=== PATIENT | female | born 1980 | race Caucasian/White ===

== ENCOUNTER → 2017-01-05 | Outpatient (CLI) | payer OTHER ==
[~2017-01-05] MED LIST: ATV5 PO; DIPH-437 PO; IBUP-1050 PO; LRT5 PO; SEASONIQUE PO
[2017-01-05 14:52] LABS: PREG INTERNAL NEGATIVE QC NEG CLEAR BACKGROUND; PREG INTERNAL POSITIVE QC POS CONTROL LINE
== END | disposition home or self-care (01) ==
LOC: C.LAB 14:22
PROVIDERS: ATTEND Physician Assistant
DX: Z30.9 Encounter for contraceptive management, unspecified (principal)

== ENCOUNTER 2019-04-30 15:42 | Inpatient (IN) ==
[2019-04-30] MEDS ORDERED: ACETAMINOPHEN 1,000 MG/100 ML VIAL IV STA (16:38)
[2019-04-30] MEDS ORDERED: ONDANSETRON INJ 2 MG/ML 2 ML VIAL IV STA (16:38)
[2019-04-30] MEDS ORDERED: SODIUM CHLORIDE 0.9% 1000ML 1,000 ML IV ONE (16:38)
[2019-04-30 17:04] LABS: Basophils # (auto) 0.02 K/uL (0-0.2); Basophils % (auto) 0.1 %; Eosinophils # (auto) 0.06 K/uL (0-0.5); Eosinophils % (auto) 0.4 %; Hematocrit (blood only) 36.7 % (37-47); Hemoglobin 12.5 g/dL (12.0-16.0); Immature Granulocytes # (auto) 0.05 K/uL (0.00-0.02); Immature Granulocytes % (auto) 0.4 %; Lymphocytes # (auto) 2.59 K/uL (1.2-3.4); Lymphocytes % (auto) 18.2 %; Mean Corpuscular Hemoglobin 31.3 pg (25-34); Mean Corpuscular Hgb Conc 34.1 g/dL (32-36); Mean Corpuscular Volume 91.8 fL (80-100); Mean Platelet Volume 9.9 fL (7.4-10.4); Monocytes # (auto) 1.02 K/uL (0.11-0.59); Monocytes % (auto) 7.2 %; Neutrophils # (auto) 10.49 K/uL (1.4-6.5); Neutrophils % (auto) 73.7 %; Platelet Count 281 K/uL (130-400); RDW Coefficient of Variation 12.9 % (11.5-14.5); RDW Standard Deviation 43.3 fL (36.4-46.3); White Blood Count 14.23 K/uL (4.8-10.8)
--- NOTE | 2019-04-30 17:14 | CT Scan Report ---
CT head/brain wo con CLINICAL HISTORY: 38 years-old Female with atypical headache. Acute headache TECHNIQUE: Multiple axial CT images of the head were obtained without contrast. A dose lowering tech nique was utilized adhering to the principles of ALARA. CT DOSE: 638.56 mGycm COMPARISON: None. FINDINGS: No acute intracranial hemorrhage, midline shift, intracranial mass, hydrocephalus, territorial ischem ia or abnormal extra-axial collection. The calvarium is intact. Minimal mucosal thickening of the ethmoid air cells. Mastoid air cells are clear. Soft tissues and orbits are unremarkable. IMPRESSION: No acute intracranial abnormality. ACT 112: Negative or not required by law. The above report was generated using voice recognition software. It may contain grammatical, syntax o r spelling errors. Electronically signed by: Joe Yarbrough M.D. 04/30/2019 5:13 PM
[2019-04-30 17:27] LABS: Influenza A virus by PCR Neg for Influ A (Neg); Influenza B virus by PCR Neg for Influ B (Neg)
[2019-04-30 17:28] LABS: Albumin Level 3.4 gm/dl (3.4-5.0); BUN Creatinine Ratio 9.1 (10-20); Calcium 9.4 mg/dl (8.5-10.1); Creatinine Clr Calc Pharmacy 104.3 ml/min; Est GFR (African American) 102.2; Est GFR (Non-African American) 88.2; Potassium 3.3 mmol/L (3.5-5.1)
[2019-04-30] MEDS ORDERED: KETOROLAC TROMETHAMINE 15 MG/ML VIAL IV ONE (17:28)
[2019-04-30 17:31] LABS: Albumin Globulin Ratio 0.7 (0.9-2); Bilirubin,Total 0.5 mg/dl (0.2-1); Globulin 4.8 gm/dl (2.5-4.0); Total Protein 8.2 gm/dl (6.4-8.2)
[2019-04-30 17:33] LABS: Lipase 75 U/L (73-393); Thyroid Stimulating Hormone 0.836 uIu/ml (0.300-4.500); Troponin I < 0.015 ng/ml (0-0.045)
[2019-04-30 17:38] LABS: Pregnancy Test, Serum Negative (Negative)
[2019-04-30 17:48] LABS: Appearance Urine Clear (Clear); Bilirubin Urine Negative (Negative); Blood Urine Negative (Negative); Color Urine Yellow; Glucose Urine UA Negative (Negative); Ketones Urine 2+ (Negative); Leukocyte Esterase Urine Negative (Negative); Nitrite Urine Negative (Negative); Protein Urine Negative (Negative); Urobilinogen Urine Negative (Negative)
[2019-04-30] MEDS ORDERED: LIDOCAINE/EPINEPHRINE 1% 20 ML VIAL INFIL ONE (17:51)
[2019-04-30 18:03] LABS: Lyme Ab IgG w/WB Rflx Negative (Negative); Lyme Ab IgM w/WB Rflx Negative (Negative)
--- NOTE | 2019-04-30 18:22 | XRay Report ---
XR abdomen 2V w PA chest CLINICAL HISTORY: fever, vomiting nausea. Vomiting. COMPARISON STUDY: No previous studies for comparison. FINDINGS: The soft tissues, psoas shadows, renal outlines and intestinal gas pattern appear normal. T here is no evidence for bowel obstruction. There is no evidence for free intraperitoneal air. No abno rmal abdominal calcifications are seen. A frontal view of the chest was performed and is unremarkable . IMPRESSION: Normal study. ACT 112: Negative or not required by law. The above report was generated using voice recognition software. It may contain grammatical, syntax or spelling errors. Electronically signed by: Iván Smith M.D. 04/30/2019 6:20 PM
[2019-04-30] MEDS: SODIUM CHLORIDE 0.9% 1000ML 1,000 ML IV SCH (19:21)
--- NOTE | 2019-04-30 20:24 | Emergency Department Note ---
Entered by Melita Olivares acting as a scribe for Sue Bartholomew DO History of Present Illness General Chief complaint: Headache Stated complaint: severe morcoho, fever, neck stiffness Time Seen by Provider: 04/30/19 16:20 Source: patient History of Present Illness Onset (ago): day(s) (yesterday morning) Location: head Pain Consistency: + other (worsening) Maximum Pain Intensity: 7 Quality: + other (headache) Associated symptoms: + fever/chills, + nausea/vomiting and + other (+dizzy; +neck pain; +ringing to ears; +vision troubles; -sore throat ); no chest pain, no cough, no rash and no shortness of breath The patient is a 38 year old female, with past medical history of anxiety and asthma, who presents to the Emergency Room with complaints of worsening headache that started yesterday morning while the patient was watching a [employer] tournament. The patient reports that she was diagnosed with strep throat last week, and she states that she is being treated for strep with penicillin over the last 5 days. She states her strep throat symptoms started to improve prior to her headache starting. The patient states that she took ibuprofen around noon yesterday, but she states it did not provide relief. The patient states the headache started as all-over throbbing, but she states now it feels as if s omeone is trying to cut off the back of her eyeballs. The patient also states she has been dizzy, nauseous, has had a fever, neck pain, and has experienced ringing to her ears. The patient states she has also had trouble focusing her vision due to being dizzy, and she states she has experienced one episode of vomiting. She denies chest pain, shortness of breath, cough, rash/sores, or diarrhea. The patient also denies having history of frequent headaches or migraines. 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 and A total of 10 systems reviewed and were otherwise negative Physical Exam Vital Signs Vital Signs - 24 hr 04/30/19 15:48 04/30/19 17:20 04/30/19 17:52 Temperature 38.1 C H 37.1 C Temperature Source Oral Oral Pulse Rate 96 H Pulse Rate [Apical] 92 H Pulse Rhythm [Apical] Regular Pulse Strength [Apical] Normal Respiratory Rate 20 18 Respiratory Effort / Characteristics Non-Labored Non-Labored Spontaneous Respiratory Depth Normal Normal Respiratory Pattern Regular Regular Blood Pressure 123/77 Blood Pressure [Left Arm] 129/86 Blood Pressure Mean 92 Blood Pressure Mean [Left Arm] 100 Blood Pressure Position Sitting Blood Pressure Position [Left Arm] Lying Pulse Oximetry 98 96 Oxygen Delivery Method Room Air Room Air Sepsis Recent Fever Within 48 Hours Yes Sepsis Action Taken by Nursing No Action Required 04/30/19 19:20 Temperature Temperature Source Pulse Rate Pulse Rate [Apical] 78 Pulse Rhythm [Apical] Regular Pulse Strength [Apical] Normal Respiratory Rate 18 Respiratory Effort / Characteristics Non-Labored Spontaneous Respiratory Depth Normal Respiratory Pattern Regular Blood Pressure Blood Pressure [Left Arm] 107/64 Blood Pressure Mean Blood Pressure Mean [Left Arm] 78 Blood Pressure Position Blood Pressure Position [Left Arm] Lying Pulse Oximetry 97 Oxygen Delivery Method Room Air Sepsis Recent Fever Within 48 Hours Sepsis Action Taken by Nursing GENERAL: alert, ill-appearing, obese, no distress, non-toxic EYE EXAM: normal conjunctiva, PERRL and EOM's grossly intact OROPHARYNX: no exudate, no erythema, lips, buccal mucosa, and tongue normal and mucous membranes are moist, no mucocutaneous lesions. NECK: Mild tenderness to palpation to right perispinal muscles. Supple, no nuchal rigidity, no adenopathy. No stridor. LUNGS: Clear to auscultation. Normal chest wall mechanics HEART: no murmurs, S1 normal and S2 normal ABDOMEN: abdomen soft, non-tender, normo-active bowel sounds, no masses, no rebound or guarding. BACK: Back is symmetrical on inspection and there is no deformity, no midline tenderness, no CVA tenderness. SKIN: no petechiae, rashes, and no bruising UPPER EXTREMITIES: upper extremities are grossly normal. FROM, nml pulses b/l. LOWER EXTREMITIES: No pitting edema. FROM, nml pulses b/l. NEURO EXAM: Normal sensorium, cranial nerves II-XII grossly intact, normal spe ech, no gross weakness of arms, no gross weakness of legs. Procedures Lumbar Puncture Time Out Performed: Yes (1821) Patient Position: other (initially upright, then left lateral decubitus ) Skin Prep: Povidone-Iodine 1% Local Anesthetic: lidocaine 1% and with epi Amount of anesthesia used (mL): 15 Spinal Needle Gauge: 22G Interspace Used: L4-L5 Fluid Initially Obtained: other (unable to obtain) Complications: unable to obtain CSF Course Course 1630: Past medical records reviewed. The patient was evaluated in room A2. A complete history and physical exam was performed. 1746: I updated the patient on her lab results. I discussed the option of lumbar puncture. The patient is in agreement with the plan for a lumbar puncture to rule out meningitis. 1821: I attempted a lumbar puncture on the patient. Patient initially seated upright, area cleaned and prepped in usual fashion, and significant time spent providing local anesthesia with lidocaine. While beginning the procedure, patient began to complain of symptoms suggestive of vasovagal reaction. And then became distraught stating that she did not lay down she was going to pass out or vomit. Patient was then laid in the left lateral recumbent position and allowed to rest for 5 to 10 minutes. I then discussed with her option of reattempting the lumbar puncture in the left lateral, position which she was agreeable, however stated that this could only be performed once. After an unsu ccessful first attempt in the left lateral recumbent position, discussed with patient sending her to radiology for an LP, she was in agreement with this plan. 1999: Patient taken to radiology for LP. 2044: Patient is just returned to the department from radiology. Patient signed out to Dr. liriano as CSF is still pending. While I have a lower suspicion for bacterial meningitis, patient did have findings that warranted additional investigation and results of LP are still pending. Administered Medications Heparin Sodium (Porcine) (Heparin Sodium (Porcine)) 5,000 units SQ Q8 RADHA Stop: 05/31/19 05:59 Last Admin: 05/01/19 15:20 Dose: Not Given Documented by: [id number] Admin: 05/01/19 05:31 Dose: Not Given Documented by: [id number] Sodium Chloride (Nss 1000ml) 1,000 mls @ 80 mls/hr IV .[id number] RADHA Stop: 05/31/19 00:11 Last Admin: 05/01/19 15:20 Dose: 80 mls/hr Documented by: [id number] Infusion: 05/01/19 14:29 Dose: 80 mls/hr Documented by: [id number] Admin: 05/01/19 01:59 Dose: 80 mls/hr Documented by: [id number] Ceftriaxone Sodium 2,000 mg/ (Dextrose) 70 mls @ 100 mls/hr IV Q12H RADHA; Protocol Stop: 05/11/19 09:59 Last Infusion: 05/01/19 11:35 Dose: 0 mls/hr Documented by: [id number] Admin: 05/01/19 10:02 Dose: 100 mls/hr Documented by: [id number] Vancomycin HCl 1,250 mg/ (Sodium Chloride) 275 mls @ 125 mls/hr IV Q10H RADHA; Protocol Stop: 05/11/19 05:59 Last Infusion: 05/01/19 19:25 Dose: 0 mls/hr Documented by: [id number] Admin: 05/01/19 16:39 Dose: 125 mls/hr Documented by: [id number] Infusion: 05/01/19 07:48 Dose: 0 mls/hr Documented by: [id number] Admin: 05/01/19 05:30 Dose: 125 mls/hr Documented by: [id number] Ketorolac Tromethamine (Toradol) 15 mg IV Q6H PRN PRN Reason: Pain Stop: 05/06/19 00:11 Last Admin: 05/01/19 16:52 Dose: 15 mg Documented by: [id number] Admin: 05/01/19 07:42 Dose: 15 mg Documented by: [id number] Discontinued Medications Acetaminophen/Butalbital/Caffeine (Fioricet) 1 tab PO NOW STA Stop: 04/30/19 20:46 Last Admin: 04/30/19 20:54 Dose: 1 tab Documented by: [id number] Dexamethasone (Decadron) 10 mg IV NOW STA Stop: 04/30/19 20:46 Last Admin: 04/30/19 20:54 Dose: 10 mg Documented by: [id number] Sodium Chloride (Nss 1000ml) 1,000 mls @ 999 mls/hr IV .Q1H1M ONE Stop: 04/30/19 17:38 Last Infusion: 04/30/19 18:00 Dose: 0 mls/hr Documented by: [id number] Admin: 04/30/19 16:59 Dose: 999 mls/hr Documented by: [id number] Acetaminophen (Ofirmev) 1,000 mg in 100 mls @ 400 mls/hr IV NOW STA Stop: 04/30/19 16:52 Last Infusion: 04/30/19 17:15 Dose: 0 mls/hr Documented by: [id number] Admin: 04/30/19 17:00 Dose: 400 mls/hr Documented by: [id number] Sodium Chloride (Nss 1000ml) 1,000 mls @ 250 mls/hr IV .Q4H RADHA Stop: 05/30/19 19:14 Last Admin: 05/01/19 04:14 Dose: Not Given Documented by: [id number] Infusion: 04/30/19 22:46 Dose: 0 mls/hr Documented by: [id number] Admin: 04/30/19 19:21 Dose: 250 mls/hr Documented by: [id number] Magnesium Sulfate/Dextrose (Magnesium Sulfate / D5w) 1 gm in 100 mls @ 100 mls/hr IV ONE ONE Stop: 04/30/19 21:44 Last Infusion: 04/30/19 21:54 Dose: 0 mls/hr Documented by: [id number] Admin: 04/30/19 20:54 Dose: 100 mls/hr Documented by: [id number] Ceftriaxone Sodium (Rocephin) 2,000 mg in 70 mls @ 140 mls/hr IV NOW STA Stop: 04/30/19 21:59 Last Infusion: 04/30/19 22:40 Dose: 0 mls/hr Documented by: [id number] Admin: 04/30/19 22:10 Dose: 140 mls/hr Documented by: [id number] Vancomycin HCl 2,000 mg/ (Sodium Chloride) 540 mls @ 200 mls/hr IV NOW ONE Stop: 05/01/19 00:11 Last Infusion: 05/01/19 01:59 Dose: 0 mls/hr Documented by: [id number] Admin: 04/30/19 22:47 Dose: 200 mls/hr Documented by: [id number] Ketorolac Tromethamine (Toradol) 10 mg IV NOW ONE Stop: 04/30/19 17:29 Last Admin: 04/30/19 17:52 Dose: 10 mg Documented by: [id number] Ketorolac Tromethamine (Toradol) Confirm Administered Dose 15 mg .ROUTE .STK-MED ONE Stop: 05/01/19 01:12 Last Admin: 05/01/19 01:14 Dose: 15 mg Documented by: [id number] Lidocaine/Epinephrine (Xylocaine/Epinephrine 1%) 20 ml INFIL NOW ONE Stop: 04/30/19 17:52 Last Admin: 04/30/19 19:03 Dose: Not Given Documented by: [id number] Ondansetron HCl (Zofran) 4 mg IV NOW STA Stop: 04/30/19 16:39 Last Admin: 04/30/19 17:00 Dose: 4 mg Documented by: [id number] Potassium Chloride (Klor-Con M20) 20 meq PO NOW STA Stop: 05/01/19 00:13 Last Admin: 05/01/19 01:13 Dose: 20 meq Documented by: [id number] Medical Decision Making Differential Diagnosis Differential diagnosis: Etiologies such as migraine headache, meningitis, sinusitis, CO exposure, ICH, SAH, infection, tumor, headache, sinus thrombosis, arterial dissection, as well as others were entertained. Medical Records Attestation: I reviewed the patient's medical records. Home Medications Current Medication List: was personally reviewed by me Laboratory Data Attestation: I reviewed the patient's lab results. Result diagrams: 05/01/19 05:20 05/01/19 05:20 Lab Results 04/30/19 04/30/19 04/30/19 Range/Units 16:41 16:57 16:57 WBC 14.23 H (4.8-10.8) K/uL RBC 4.00 L (4.2-5.4) M/uL Hgb 12.5 (12.0-16.0) g/dL Hct 36.7 L (37-47) % MCV 91.8 (80-100) fL MCH 31.3 (25-34) pg MCHC 34.1 (32-36) g/dL RDW Std Deviation 43.3 (36.4-46.3) fL RDW Coeff of Tanner 12.9 (11.5-14.5) % Plt Count 281 (130-400) K/uL MPV 9.9 (7.4-10.4) fL Immature Gran % (Auto) 0.4 % Neut % (Auto) 73.7 % Lymph % (Auto) 18.2 % Carbon % (Auto) 7.2 % Eos % (Auto) 0.4 % Baso % (Auto) 0.1 % Immature Gran # (Auto) 0.05 H (0.00-0.02) K/uL Neut # (Auto) 10.49 H (1.4-6.5) K/uL Lymph # (Auto) 2.59 (1.2-3.4) K/uL Carbon # (Auto) 1.02 H (0.11-0.59) K/uL Eos # (Auto) 0.06 (0-0.5) K/uL Baso # (Auto) 0.02 (0-0.2) K/uL Sodium (136-145) mmol/L Potassium (3.5-5.1) mmol/L Chloride (98-107) mmol/L Carbon Dioxide (21-32) mmol/L Anion Gap (3-11) BUN (7-18) mg/dl Creatinine (0.6-1.2) mg/dl Est Cr Clr Drug Dosing ml/min Est GFR ( Amer) Est GFR (Non-Af Amer) BUN/Creatinine Ratio (10-20) Glucose (70-99) mg/dl Calcium (8.5-10.1) mg/dl Magnesium 2.0 (1.8-2.4) mg/dl Total Bilirubin (0.2-1) mg/dl AST (15-37) U/L ALT (12-78) U/L Alkaline Phosphatase (45-117) U/L Troponin I < 0.015 (0-0.045) ng/ml Total Protein (6.4-8.2) gm/dl Albumin (3.4-5.0) gm/dl Globulin (2.5-4.0) gm/dl Albumin/Globulin Ratio (0.9-2) Lipase 75 (73-393) U/L TSH 0.836 (0.300-4.500) uIu/ml HCG, Qual (Negative) Urine Color Urine Appearance (Clear) Urine pH (4.5-7.5) Ur Specific Ferdinand (1.000-1.030) Urine Protein (Negative) Urine Glucose (UA) (Negative) Urine Ketones (Negative) Urine Blood (Negative) Urine Nitrite (Negative) Urine Bilirubin (Negative) Urine Urobilinogen (Negative) Ur Leukocyte Esterase (Negative) CSF Appearance CSF Color Xanthrochromic CSF WBC (0-5) /uL CSF RBC (0-) /uL CSF Cell Count Tube # CSF Mononuclear WBCs % CSF Polynuclear WBCs % CSF Chemistry Tube # CSF Glucose (40-70) mg/dl CSF Total Protein (15-45) mg/dl CSF C.neoform/gat PCR (NotDetected) CSF CMV DNA (PCR) (NotDetected) CSF Enterovirus (PCR) (NotDetected) CSF E. coli K1 (PCR) (NotDetected) CSF H. influenzae (PCR) (NotDetected) CSF HSV I (PCR) (NotDetected) CSF HSV II (PCR) (NotDetected) CSF HHV 6 (PCR) (NotDetected) CSF L.monocytogenes PCR (NotDetected) CSF N. meningitidis PCR (NotDetected) CSF Parechovirus (PCR) (NotDetected) CSF S. agalactiae (PCR) (NotDetected) CSF S. pneumoniae (PCR) (NotDetected) CSF VZV DNA (PCR) (NotDetected) Lyme Disease IgG Ab (Negative) Lyme Disease IgM Ab (Negative) Influenza Type A (PCR) Neg for Influ A (Neg) Influenza Type B (PCR) Neg for Influ B (Neg) 01/27/20 01/27/20 01/27/20 Range/Units 16:57 16:57 17:15 WBC (4.8-10.8) K/uL RBC (4.2-5.4) M/uL Hgb (12.0-16.0) g/dL Hct (37-47) % MCV (80-100) fL MCH (25-34) pg MCHC (32-36) g/dL RDW Std Deviation (36.4-46.3) fL RDW Coeff of Tanner (11.5-14.5) % Plt Count (130-400) K/uL MPV (7.4-10.4) fL Immature Gran % (Auto) % Neut % (Auto) % Lymph % (Auto) % Carbon % (Auto) % Eos % (Auto) % Baso % (Auto) % Immature Gran # (Auto) (0.00-0.02) K/uL Neut # (Auto) (1.4-6.5) K/uL Lymph # (Auto) (1.2-3.4) K/uL Carbon # (Auto) (0.11-0.59) K/uL Eos # (Auto) (0-0.5) K/uL Baso # (Auto) (0-0.2) K/uL Sodium 136 (136-145) mmol/L Potassium 3.3 L (3.5-5.1) mmol/L Chloride 102 (98-107) mmol/L Carbon Dioxide 28 (21-32) mmol/L Anion Gap 6.0 (3-11) BUN 8 (7-18) mg/dl Creatinine 0.83 (0.6-1.2) mg/dl Est Cr Clr Drug Dosing 104.3 ml/min Est GFR ( Amer) 102.2 Est GFR (Non-Af Amer) 88.2 BUN/Creatinine Ratio 9.1 L (10-20) Glucose 100 H (70-99) mg/dl Calcium 9.4 (8.5-10.1) mg/dl Magnesium (1.8-2.4) mg/dl Total Bilirubin 0.5 (0.2-1) mg/dl AST 7 L (15-37) U/L ALT 17 (12-78) U/L Alkaline Phosphatase 63 (45-117) U/L Troponin I (0-0.045) ng/ml Total Protein 8.2 (6.4-8.2) gm/dl Albumin 3.4 (3.4-5.0) gm/dl Globulin 4.8 H (2.5-4.0) gm/dl Albumin/Globulin Ratio 0.7 L (0.9-2) Lipase (73-393) U/L TSH (0.300-4.500) uIu/ml HCG, Qual Negative (Negative) Urine Color Yellow Urine Appearance Clear (Clear) Urine pH 6.0 (4.5-7.5) Ur Specific Ferdinand 1.020 (1.000-1.030) Urine Protein Negative (Negative) Urine Glucose (UA) Negative (Negative) Urine Ketones 2+ H (Negative) Urine Blood Negative (Negative) Urine Nitrite Negative (Negative) Urine Bilirubin Negative (Negative) Urine Urobilinogen Negative (Negative) Ur Leukocyte Esterase Negative (Negative) CSF Appearance CSF Color Xanthrochromic CSF WBC (0-5) /uL CSF RBC (0-) /uL CSF Cell Count Tube # CSF Mononuclear WBCs % CSF Polynuclear WBCs % CSF Chemistry Tube # CSF Glucose (40-70) mg/dl CSF Total Protein (15-45) mg/dl CSF C.neoform/gat PCR (NotDetected) CSF CMV DNA (PCR) (NotDetected) CSF Enterovirus (PCR) (NotDetected) CSF E. coli K1 (PCR) (NotDetected) CSF H. influenzae (PCR) (NotDetected) CSF HSV I (PCR) (NotDetected) CSF HSV II (PCR) (NotDetected) CSF HHV 6 (PCR) (NotDetected) CSF L.monocytogenes PCR (NotDetected) CSF N. meningitidis PCR (NotDetected) CSF Parechovirus (PCR) (NotDetected) CSF S. agalactiae (PCR) (NotDetected) CSF S. pneumoniae (PCR) (NotDetected) CSF VZV DNA (PCR) (NotDetected) Lyme Disease IgG Ab Negative (Negative) Lyme Disease IgM Ab Negative (Negative) Influenza Type A (PCR) (Neg) Influenza Type B (PCR) (Neg) 04/30/19 04/30/19 04/30/19 Range/Units 20:27 20:27 20:27 WBC (4.8-10.8) K/uL RBC (4.2-5.4) M/uL Hgb (12.0-16.0) g/dL Hct (37-47) % MCV (80-100) fL MCH (25-34) pg MCHC (32-36) g/dL RDW Std Deviation (36.4-46.3) fL RDW Coeff of Tanner (11.5-14.5) % Plt Count (130-400) K/uL MPV (7.4-10.4) fL Immature Gran % (Auto) % Neut % (Auto) % Lymph % (Auto) % Carbon % (Auto) % Eos % (Auto) % Baso % (Auto) % Immature Gran # (Auto) (0.00-0.02) K/uL Neut # (Auto) (1.4-6.5) K/uL Lymph # (Auto) (1.2-3.4) K/uL Carbon # (Auto) (0.11-0.59) K/uL Eos # (Auto) (0-0.5) K/uL Baso # (Auto) (0-0.2) K/uL Sodium (136-145) mmol/L Potassium (3.5-5.1) mmol/L Chloride (98-107) mmol/L Carbon Dioxide (21-32) mmol/L Anion Gap (3-11) BUN (7-18) mg/dl Creatinine (0.6-1.2) mg/dl Est Cr Clr Drug Dosing ml/min Est GFR ( Amer) Est GFR (Non-Af Amer) BUN/Creatinine Ratio (10-20) Glucose (70-99) mg/dl Calcium (8.5-10.1) mg/dl Magnesium (1.8-2.4) mg/dl Total Bilirubin (0.2-1) mg/dl AST (15-37) U/L ALT (12-78) U/L Alkaline Phosphatase (45-117) U/L Troponin I (0-0.045) ng/ml Total Protein (6.4-8.2) gm/dl Albumin (3.4-5.0) gm/dl Globulin (2.5-4.0) gm/dl Albumin/Globulin Ratio (0.9-2) Lipase (73-393) U/L TSH (0.300-4.500) uIu/ml HCG, Qual (Negative) Urine Color Urine Appearance (Clear) Urine pH (4.5-7.5) Ur Specific Ferdinand (1.000-1.030) Urine Protein (Negative) Urine Glucose (UA) (Negative) Urine Ketones (Negative) Urine Blood (Negative) Urine Nitrite (Negative) Urine Bilirubin (Negative) Urine Urobilinogen (Negative) Ur Leukocyte Esterase (Negative) CSF Appearance Cloudy CSF Color Colorless Xanthrochromic No xanthochromia CSF WBC 460 H* (0-5) /uL CSF RBC 10 (0-) /uL CSF Cell Count Tube # 3 CSF Mononuclear WBCs 58.0 % CSF Polynuclear WBCs 42.0 % CSF Chemistry Tube # 4 CSF Glucose 63 (40-70) mg/dl CSF Total Protein 50.5 H (15-45) mg/dl CSF C.neoform/gat PCR Not Detected (NotDetected) CSF CMV DNA (PCR) Not Detected (NotDetected) CSF Enterovirus (PCR) Not Detected (NotDetected) CSF E. coli K1 (PCR) Not Detected (NotDetected) CSF H. influenzae (PCR) Not Detected (NotDetected) CSF HSV I (PCR) Not Detected (NotDetected) CSF HSV II (PCR) Not Detected (NotDetected) CSF HHV 6 (PCR) Not Detected (NotDetected) CSF L.monocytogenes PCR Not Detected (NotDetected) CSF N. meningitidis PCR Not Detected (NotDetected) CSF Parechovirus (PCR) Not Detected (NotDetected) CSF S. agalactiae (PCR) Not Detected (NotDetected) CSF S. pneumoniae (PCR) Not Detected (NotDetected) CSF VZV DNA (PCR) Not Detected (NotDetected) Lyme Disease IgG Ab (Negative) Lyme Disease IgM Ab (Negative) Influenza Type A (PCR) (Neg) Influenza Type B (PCR) (Neg) Imaging Data Radiologist's Impression: Radiology results as stated below per my review and the radiologist's interpretation: XR abdomen 2V w PA chest CLINICAL HISTORY: fever, vomiting nausea. Vomiting. COMPARISON STUDY: No previous studies for comparison. FINDINGS: The soft tissues, psoas shadows, renal outlines and intestinal gas pattern appear normal. There is no evidence for bowel obstruction. There is no evidence for free intraperitoneal air. No abnormal abdominal calcifications are seen. A frontal view of the chest was performed and is unremarkable. IMPRESSION: Normal study. ACT 112: Negative or not required by law. The above report was generated using voice recognition software. It may contain grammatical, syntax or spelling errors. Electronically signed by: Iván Smith M.D. 04/30/2019 6:[address] head/brain wo con CLINICAL HISTORY: 38 years-old Female with atypical headache. Acute headache TECHNIQUE: Multiple axial CT images of the head were obtained without contrast. A dose lowering technique was utilized adhering to the principles of ALARA. CT DOSE: 638.56 mGycm COMPARISON: None. FINDINGS: No acute intracranial hemorrhage, midline shift, intracranial mass, hy drocephalus, territorial ischemia or abnormal extra-axial collection. The calvarium is intact. Minimal mucosal thickening of the ethmoid air cells. Mastoid air cells are clear. Soft tissues and orbits are unremarkable. IMPRESSION: No acute intracranial abnormality. ACT 112: Negative or not required by law. The above report was generated using voice recognition software. It may contain grammatical, syntax or spelling errors. Electronically signed by: Joe Yarbrough M.D. 04/30/2019 5:13 PM ECG Data Attestation: I personally reviewed and interpreted this ECG as follows: Indication: + vomiting Rate (beats per minute): 90 Rhythm: + normal sinus ECG [place]: + Normal ECG ST segments: no ST depression and no ST elevation ECG Findings: + Other (Low voltage ); no PACs and no PVCs Blood Pressure Blood Pressure Findings: Normal blood pressure MDM Narrative Patient presenting with complaints of headache, light sensitivity, neck stiffness and nausea. Patient not immunocompromise, no history of recurrent headaches. Patient hemodynamically stable. Patient did have a mild leukocytosis. Other labs reassuring. Patient signed out to Dr. Liriano awaiting results of CSF. LP originally attempted in the emergency department however was unsuccessful, and patient need to be sent to radiology. Patient was given several doses of medication here and did report slight improvement. Patient was given IV fluids. I do not suspect NPH, occult ICH, SAH, or dissection. I did discuss with patient possible disposition pending the outcomes of her CSF studies. Patient verbalized understanding. Patient had a normal and nonfocal neuro exam at bedside. No evidence of bacteremia/sepsis. Impression & Plan Headache, Strep pharyngitis, Fever Discharge Plan Visit Data *Final* Discharge Date/Time: 04/30/19 23:49 Chief Complaint: Headache Stated Complaint: severe morocho, fever, neck stiffness ED Provider: Kirk Liriano Discharge Problem: Headache, Strep pharyngitis, Fever Patient Disposition: Admitted As Inpatient Condition: Good Discharge Instructions Interventions: ED Discharge Assessment Last Done: 04/30/19 23:49 Discharge Problem: Headache Qualifiers: Headache type: unspecified Headache chronicity pattern: acute headache Intractability: not intractable Qualified Code(s): R51 - Headache Fever Qualifiers: Fever type: unspecified Qualified Code(s): R50.9 - Fever, unspecified The scribe's documentation has been prepared under my direction and personally reviewed by me in its entirety. I confirm that the note above accurately reflects all work, treatment, procedures, and medical decision making performed by me.
[2019-04-30] MEDS ORDERED: BUTALBITAL/ACETAMIN/CAFFEINE TAB PO STA (20:45)
[2019-04-30] MEDS ORDERED: DEXAMETHASONE SOD INJ 4 MG/ML VIAL IV STA (20:45)
[2019-04-30] MEDS ORDERED: MAGNESIUM SULFATE / D5W 1 GM/100 ML BAG IV ONE (20:45)
--- NOTE | 2019-04-30 20:51 | Fluoroscopy Report ---
FL lumbar puncture diagnostic CLINICAL HISTORY: rule out meningitis meningitis FLUOROSCOPY TIME: 6 seconds PROCEDURE: The procedure, risks and benefits were discussed with the patient including the risk of s jami headache, bleeding and infection. The patient agreed to the procedure and informed written cons ent was obtained. The procedure was performed by Dr. Smith following a timeout. The left L2-L3 inter laminar space was targeted. Skin overlying the space was prepped and draped in the usual sterile fash ion and local anesthesia was achieved with 1% lidocaine. Under intermittent fluoroscopic guidance, a 20-gauge x 3 1/2 in. Sprotte needle was inserted into the thecal sac. A total of 10 cc of clear, colo rless cerebral spinal fluid was obtained and spread amongst 4 vials. The patient tolerated the proced ure well. There were no immediate complications. The specimens were sent to the laboratory at the [facility] of the referring physician. IMPRESSION: Successful fluoroscopic guided lumbar puncture with removal of 10 cc of clear, colorless cerebral spinal fluid. No immediate complications. ACT 112: Negative or not required by law. The above report was generated using voice recognition software. It may contain grammatical, syntax or spelling errors. Electronically signed by: Iván Smith M.D. 04/30/2019 8:49 PM
[2019-04-30 20:53] LABS: Total Protein CSF 50.5 mg/dl (15-45)
[2019-04-30 21:09] LABS: Appearance CSF Cloudy; CSF Count Tube # 3; CSF Xanthrochromic No xanthochromia; Color CSF Colorless
[2019-04-30 21:10] LABS: Red Blood Cell CSF (A) 10 /uL (0-); Red Blood Cell CSF (B) 0 /uL (0-); White Blood Cell CSF (B) 430 /uL (0-5)
[2019-04-30 21:17] LABS: White Blood Cell CSF (A) 460 /uL (0-5)
[2019-04-30] MEDS ORDERED: cefTRIAXone SODIUM 2,000 MG/70 ML BAG IV STA (21:30)
[2019-04-30] MEDS ORDERED: VANCOMYCIN HCL 2,000 MG in SODIUM CHLORIDE 0.9% 500 ML IV ONE (21:30)
[2019-04-30] MEDS ORDERED: VANCOMYCIN CONSULT ACTIVE PRN (21:30)
[2019-04-30 22:22] LABS: Cytomegalovirus PCR Not Detected (NotDetected); Enterovirus PCR Not Detected (NotDetected); Escherichia coli K1 PCR Not Detected (NotDetected); Haemophilius influenzae PCR Not Detected (NotDetected); Herpes Simplex Virus 1 PCR Not Detected (NotDetected); Herpes Simplex Virus 2 PCR Not Detected (NotDetected); Listeria monocytogenes PCR Not Detected (NotDetected); Neisseria meningitidis PCR Not Detected (NotDetected); Streptococcus agalactiae PCR Not Detected (NotDetected); Streptococcus pneumoniae PCR Not Detected (NotDetected)
[2019-04-30 22:23] LABS: Cryptococcus neoformans/ga PCR Not Detected (NotDetected); Human Herpes Virus 6 PCR Not Detected (NotDetected); Human Parechovirus PCR Not Detected (NotDetected); Varicella Zoster Virus PCR Not Detected (NotDetected)
[2019-05-01] MEDS ORDERED: VANCOMYCIN CONSULT ACTIVE PRN (00:12)
[2019-05-01] MEDS ORDERED: POLYETHYLENE (MIRALAX) 17 GM PACK PO PRN (00:12)
[2019-05-01] MEDS ORDERED: POTASSIUM CHLORIDE 20 MEQ TABCR PO STA (00:12)
[2019-05-01] MEDS ORDERED: OXYCODONE HCL IR 5 MG TAB (IMMEDIATE RELEASE) PO PRN (00:12)
[2019-05-01] MEDS ORDERED: ACETAMINOPHEN 325 MG TAB PO PRN (00:12)
[2019-05-01] MEDS ORDERED: ONDANSETRON INJ 2 MG/ML 2 ML VIAL IV PRN (00:12)
--- NOTE | 2019-05-01 01:04 | Emergency Department Note ---
ED Visit Note The patient was taken in signout from Dr. Bartholomew at the change of shift. Please see that note for details. In short, the patient is a 38-year-old woman presenting with fever and headache over the past [address] head was negative. WBC 14.2. Chemistry without acidosis. The patient was pending CSF results from LP performed by radiology. CSF subsequently with WBCs 460, mononuclear cells 58% with polynuclear cells 42%. Glucose 63. Protein 50.5. While the patient's CSF result certainly could be attributed to viral meningitis given the significant significant elevation in WBCs reasonable to admit the patient for IV antibiotics while culture and Gram stain are pending. Patient re- evaluated and feeling improved in terms of headache. Patient was agreeable with admission. [facility] the patient for [facility]. . : Headache Qualifiers: Headache type: unspecified Headache chronicity pattern: acute headache Intractability: not intractable Qualified Code(s): R51 - Headache Fever Qualifiers: Fever type: unspecified Qualified Code(s): R50.9 - Fever, unspecified
[2019-05-01] MEDS ORDERED: KETOROLAC TROMETHAMINE 15 MG/ML VIAL ONE (01:11)
[2019-05-01] MEDS: SODIUM CHLORIDE 0.9% 1000ML 1,000 ML IV SCH ×3 (01:59→15:20)
--- NOTE | 2019-05-01 02:29 | History and Physical Report ---
DATE OF ADMISSION: 04/30/2019 CHIEF COMPLAINT: Headache and fever, neck stiffness. HISTORY OF PRESENT ILLNESS: This is a 38-year-old female with past medical history significant for mild asthma, obesity, presents due to severe headache and fevers. The patient was diagnosed with strep throat last and she was on penicillin and the strep throat has improved, but since yesterday morning, she has severe headaches, worst headache in her life, about 9/10 in severity. It is all over the head, but mostly behind the eyes and since last night, she could not eat anything and she had 1 episode of vomiting and she was nauseous and today, she developed fever and also neck stiffness, went to PCP's office and advised to come to the ER. In the ER, labs showed white count of 14.2. Her lumbar puncture was done and it showed white count of 460 and protein of 50.5. CT of the head was unremarkable. The patient is on pain medication and her pain is currently improved, but she still has some photophobia, no phonophobia. Denies any cough. No dysphagia, no odynophagia. No chest pain, no shortness of breath. No abdominal pain. Normal bowel and bladder movements. No hematuria or blood in the stools or black stools. No burning micturition. Was feeling dizzy earlier. No blurred visions. No earache, no runny nose. Currently resting comfortable and hemodynamically stable. ALLERGIES: No known drug allergies. PAST MEDICAL HISTORY: As mentioned above. PAST SURGICAL HISTORY: Dental surgery, cholecystectomy. MEDICATIONS: Currently on penicillin 500 mg p.o. b.i.d. FAMILY HISTORY: Significant for father had diabetes, hyperlipidemia, exposed to [place], hypertension, posttraumatic stress disorder. Mother has sleep apnea, hypertension, ulcerative colitis, hyperlipidemia. Paternal uncle has lung cancer. SOCIAL HISTORY: . Quit smoking in 2003, smoked 1.5 pack a day for 11 years. Alcohol occasional. No drug use. REVIEW OF SYMPTOMS: As per HPI. Rest of review of symptoms negative. PHYSICAL EXAMINATION: GENERAL: The patient is obese, not in acute distress. VITAL SIGNS: T-max 38.1, pulse 74, respiratory rate 18, blood pressure 120/70, oxygen 94% room air. HEENT: No pallor, no icterus. Pupils equal, round, reactive to light. NECK: No JVD, no neck masses, no carotid bruits. CARDIOVASCULAR: S1, S2 heard. Regular rate and rhythm. No murmur, no gallop. RESPIRATORY SYSTEM: Normal AP diameter. No accessory muscle use. No wheezing, no crackles. ABDOMEN: Soft, bowel sounds present, nontender. No distention. CENTRAL NERVOUS SYSTEM: Cranial nerves II through XII grossly intact. Nonfocal. EXTREMITIES: No edema, no erythema. LABORATORY DATA: WBC 14.2, hemoglobin 12.5, hematocrit 36.7, platelets of 281. Sodium 136, potassium 3.3, chloride 102, bicarb 28, BUN 8, creatinine 0.8, serum glucose 100, calcium 9.4, magnesium 2. Total bilirubin 0.5, AST 7, ALT 17, alkaline phosphatase 63. Troponin I less than 0.015. Lipase 75. TSH 0.8. HCG negative. Urinalysis, +2 ketones. Lumbar puncture, CSF analysis: CSF WBC 460, total protein 50.5, glucose 63. ASSESSMENT AND PLAN: This is a 38-year-old female who presents with severe headache, who was diagnosed with strep throat last and on penicillin the strep throat improved, but now presents with severe headaches started yesterday and neck stiffness and fever started today. Lumbar puncture was consistent with meningitis. 1. Headache and fever, meningitis, viral versus bacterial: Recently had a strep throat. Received Rocephin and IV vancomycin in the ER, which we will continue and follow the cultures. Pain control with oxycodone p.r.n. and Toradol iv l p.r.n. IV fluids, normal saline at a rate of 80 mL per hour and monitor in the medical floor. Consult ID in a.m. for further recommendation for type and duration of antibiotics. 2. History of asthma, uses only albuterol as needed. 3. Obesity, needs counseling. 4. Deep vein thrombosis prophylaxis. SCDs and heparin subQ. DISPOSITION: Admit to medical floor. Expect discharge home and follow with family doctor. Level 1 full code. MTDD
[2019-05-01] MEDS: VANCOMYCIN HCL 1,250 MG in SODIUM CHLORIDE 0.9% 250 ML IV SCH ×2 (05:30→16:39)
[2019-05-01 05:31] LABS: Basophils # (auto) 0.01 K/uL (0-0.2); Basophils % (auto) 0.1 %; Eosinophils # (auto) 0.01 K/uL (0-0.5); Eosinophils % (auto) 0.1 %; Hemoglobin 12.4 g/dL (12.0-16.0); Immature Granulocytes # (auto) 0.07 K/uL (0.00-0.02); Immature Granulocytes % (auto) 0.6 %; Lymphocytes # (auto) 1.09 K/uL (1.2-3.4); Lymphocytes % (auto) 9.5 %; Mean Corpuscular Hemoglobin 31.4 pg (25-34); Mean Corpuscular Hgb Conc 33.5 g/dL (32-36); Mean Corpuscular Volume 93.7 fL (80-100); Mean Platelet Volume 9.9 fL (7.4-10.4); Monocytes # (auto) 0.21 K/uL (0.11-0.59); Monocytes % (auto) 1.8 %; Neutrophils # (auto) 10.12 K/uL (1.4-6.5); Neutrophils % (auto) 87.9 %; Platelet Count 264 K/uL (130-400); RDW Coefficient of Variation 12.8 % (11.5-14.5); RDW Standard Deviation 44.4 fL (36.4-46.3); Red Blood Count 3.95 M/uL (4.2-5.4); White Blood Count 11.51 K/uL (4.8-10.8)
[2019-05-01] MEDS: HEPARIN SOD 5,000 UNIT/0.5 ML VIAL SQ SCH ×3 (05:31→22:17)
[2019-05-01 06:00] LABS: BUN Creatinine Ratio 11.2 (10-20); Calcium 8.4 mg/dl (8.5-10.1); Creatinine Clr Calc Pharmacy 114.7 ml/min; Est GFR (African American) 113.7; Est GFR (Non-African American) 98.1; Magnesium 2.4 mg/dl (1.8-2.4); Potassium 3.8 mmol/L (3.5-5.1)
[2019-05-01] MEDS: KETOROLAC TROMETHAMINE 15 MG/ML VIAL IV PRN ×2 (07:42→16:52)
[2019-05-01] MEDS: cefTRIAXone SODIUM 2,000 MG in DEXTROSE 5% 50 ML IV SCH ×2 (10:02→22:29)
--- NOTE | 2019-05-01 12:26 | Infectious Disease Consult ---
Date of Consultation May 01, 2019 Assessment & Plan (1) Meningitis: continue abx for now, if cultures negative, can likely d/c home in am. would like for cultures to be negative x 24hours. History of Present Illness Attending Physician: Hiram Villaseñor MD pt admitted with morocho and fever. LP in ER460 wbc, 58%L, elevated protein, pcr negative, gram stain negative, cultures pending. started on vanco and ctx, tole rating well. recent diagnosis of strep throat, on po pcn, feeling better. no sick contacts. feeling much better. morocho resolved. no f/c. no abd pain, no n/v/d. no visual complaints, no neck pain, no cp, sob, cough, no st. wbc 11 today. asking to go home. Allergies Allergy/AdvReac Type Severity Reaction Status Date / Time No Known Drug Allergies Allergy Verified 04/30/19 17:51 Home Medications Home Medications Medication Instructions Recorded Confirmed Type penicillin V potassium 500 mg PO BID 04/30/19 04/30/19 History Patient History Medical History Anxiety Asthma Surgical History H/O oral surgery S/P cholecystectomy Family History Mother Hypertension Father Hypertension Diabetes Social History Preferred Language: Persian Communication Ability: Effective Multimedia Teacher Required: No Beliefs That Will Affect Care: None Current Living Situation: Family Other Information That Helps Us Care for You: No Feels Safe at Home: Yes Safety Concerns: Feels Safe At This Time Smoking Status: Former smoker Do You Dip or Chew Tobacco: No ; Second Hand Exposure: No ; Tobacco Cessation Education Requested by Patient: No Hx Alcohol Use: Yes Alcohol type: beer and hard liquor Hx Substance Use: No Review of Systems Review of Systems: All systems reviewed & are unremarkable except as noted in HPI & below Physical Exam Constitutional: WD/WN, vitals as above Eyes: PERRL, conjunctivae normal, anicteric sclerae ENMT: external ear and nose normal, oropharynx normal Neck: trachea midline, no thyromegaly normal visual inspection; no nuchal rigidity Respiratory: normal respiratory effort, lungs clear to auscultation Cardiovascular: RRR, no murmur, no edema Gastrointestinal (Abdomen): normal bowel sounds, soft, nontender, no hepatosplenomegaly Musculoskeletal: no cyanosis or clubbing, extremities motor strength 5/5 Skin: no rashes, warm and dry Psychiatric: A+Ox3, euthymic affect Results & Data Vital Signs (Past 12 Hours) Vital Signs Temp Pulse Resp BP Pulse Ox 05/01/19 07:48 36.7 C 77 16 99/64 L 98 PG Care Time/CCT Total # of Minutes Spent Total Time Spent with Patient: Total time spent is greater than 50% in coordination of care (as documented) at patient's floor/unit and/or counseling patient: Coding Level of Care Code 79084 Inpt Consult Level 4 Diagnoses Meningitis G03.9
--- NOTE | 2019-05-01 16:06 | Hospitalist Progress Note ---
Date of Service May 01, 2019 Assessment & Plan (1) Meningitis: Presented with neck stiffness and headache History of recent pharyngitis on penicillin LP is supportive of viral etiology Has been on antibiotic Appreciate ID input and recommendation Likely to go home tomorrow following negative cultures (2) Headache: Secondary to meningitis (3) Strep pharyngitis: Denies any throat pain and or fever Continue current Cultures negative will send home tomorrow Subjective 05/01/2019 Patient was seen and examined in the medical floor She was admitted with history of sore throat for a few days and 10 complicated by headache and neck is stiffness and photophobia She has been feeling better since admission Denies any more photophobia and/or neck is stiffness, still has some headache Review of Systems Review of Systems: All systems reviewed and are unremarkable except as noted below Neurologic: + headache(s) Physical Exam Physical Exam: Lying in bed comfortably Constitutional: well developed, well nourished and + obese; no acute distress and not ill appearing Eyes: PERRL, conjunctivae normal, anicteric sclerae ENMT: external ear and nose normal, oropharynx normal Neck: trachea midline, no thyromegaly Respiratory: normal respiratory effort Auscultation: lungs clear to auscultation bilaterally Cardiovascular: Rate/Rhythm: regular rate and regular rhythm Heart Sounds: no murmur Gastrointestinal (Abdomen): Inspection/Auscultation: abdomen normal to inspection and normal bowel sounds Musculoskeletal: No neck stiffness Neurologic: moves all extremities; no focal motor deficits Lymphatic: no cervical or axillary lymphadenopathy Results & Data Vital Signs (Past 12 Hours) Vital Signs Temp Pulse Resp BP Pulse Ox 05/01/19 15:23 37.6 C H 74 16 117/78 95 05/01/19 07:48 36.7 C 77 16 99/64 L 98 Laboratory Results Short CBC 04/30/19 05/01/19 Range/Units 16:57 05:20 WBC 14.23 H 11.51 H (4.8-10.8) K/uL Hgb 12.5 12.4 (12.0-16.0) g/dL Hct 36.7 L 37.0 (37-47) % Plt Count 281 264 (130-400) K/uL BMP 04/30/19 05/01/19 16:57 05:20 Sodium 136 141 Potassium 3.3 L 3.8 D Chloride 102 111 H Carbon Dioxide 28 27 BUN 8 8 Creatinine 0.83 0.76 Glucose 100 H 179 H Calcium 9.4 8.4 L Cardiac Enzymes 04/30/19 Range/Units 16:57 Troponin I < 0.015 (0-0.045) ng/ml Liver Function 04/30/19 Range/Units 16:57 Total Bilirubin 0.5 (0.2-1) mg/dl AST 7 L (15-37) U/L ALT 17 (12-78) U/L Alkaline Phosphatase 63 (45-117) U/L Albumin 3.4 (3.4-5.0) gm/dl Urine 04/30/19 Range/Units 17:15 Urine Color Yellow Urine Appearance Clear (Clear) Urine pH 6.0 (4.5-7.5) Ur Specific [place] 1.020 (1.000-1.030) Urine Protein Negative (Negative) Urine Glucose (UA) Negative (Negative) Medications Administered Current Inpatient Medications Acetaminophen (Tylenol) 650 mg PO Q4H PRN PRN Reason: pain/fever Stop: 05/31/19 00:11 Heparin Sodium (Porcine) (Heparin Sodium (Porcine)) 5,000 units SQ Q8 RADHA Stop: 05/31/19 05:59 Last Admin: 05/01/19 15:20 Dose: Not Given Documented by: Sodium Chloride (Nss 1000ml) 1,000 mls @ 80 mls/hr IV .[id number] [facility] Stop: 05/31/19 00:11 Last Admin: 05/01/19 15:20 Dose: 80 mls/hr Documented by: Ceftriaxone Sodium 2,000 mg/ (Dextrose) 70 mls @ 100 mls/hr IV Q12H [facility]; Protocol Stop: 05/11/19 09:59 Last Infusion: 05/01/19 11:35 Dose: Infused Documented by: Vancomycin HCl 1,250 mg/ (Sodium Chloride) 275 mls @ 125 mls/hr IV Q10H [facility]; Protocol Stop: 05/11/19 05:59 Last Infusion: 05/01/19 07:48 Dose: Infused Documented by: Ketorolac Tromethamine (Toradol) 15 mg IV Q6H PRN PRN Reason: Pain Stop: 05/06/19 00:11 Last Admin: 05/01/19 07:42 Dose: 15 mg Documented by: Miscellaneous Information (Consult) 1 ea N/A UD PRN PRN Reason: Consult Stop: 05/31/19 00:11 Ondansetron HCl (Zofran) 4 mg IV Q6H PRN PRN Reason: Nausea Stop: 05/31/19 00:11 Oxycodone HCl (Roxicodone Immediate Rel) 5 mg PO Q4H PRN PRN Reason: Pain Stop: 05/15/19 00:11 Polyethylene Glycol (Miralax Powder Packet) 17 gm PO DAILY PRN PRN Reason: Constipation Stop: 05/31/19 00:11 (1) Headache Headache chronicity pattern: acute headache Headache type: unspecified Intractability: not intractable Qualified Code(s): R51 - Headache
[2019-05-02] MEDS: VANCOMYCIN HCL 1,250 MG in SODIUM CHLORIDE 0.9% 250 ML IV SCH (02:42)
[2019-05-02] MEDS: SODIUM CHLORIDE 0.9% 1000ML 1,000 ML IV SCH (05:00)
[2019-05-02] MEDS: HEPARIN SOD 5,000 UNIT/0.5 ML VIAL SQ SCH ×2 (05:36→16:17)
[2019-05-02] MEDS: KETOROLAC TROMETHAMINE 15 MG/ML VIAL IV PRN (06:17)
[2019-05-02 07:48] LABS: Basophils # (auto) 0.02 K/uL (0-0.2); Basophils % (auto) 0.2 %; Eosinophils # (auto) 0.11 K/uL (0-0.5); Eosinophils % (auto) 1.1 %; Hematocrit (blood only) 33.9 % (37-47); Hemoglobin 10.9 g/dL (12.0-16.0); Immature Granulocytes # (auto) 0.04 K/uL (0.00-0.02); Immature Granulocytes % (auto) 0.4 %; Lymphocytes # (auto) 3.53 K/uL (1.2-3.4); Lymphocytes % (auto) 34.3 %; Mean Corpuscular Hemoglobin 30.3 pg (25-34); Mean Corpuscular Hgb Conc 32.2 g/dL (32-36); Mean Corpuscular Volume 94.2 fL (80-100); Mean Platelet Volume 9.9 fL (7.4-10.4); Monocytes # (auto) 0.49 K/uL (0.11-0.59); Monocytes % (auto) 4.8 %; Neutrophils # (auto) 6.09 K/uL (1.4-6.5); Neutrophils % (auto) 59.2 %; Platelet Count 266 K/uL (130-400); RDW Coefficient of Variation 13.1 % (11.5-14.5); RDW Standard Deviation 44.8 fL (36.4-46.3); White Blood Count 10.28 K/uL (4.8-10.8)
[2019-05-02 08:14] LABS: BUN Creatinine Ratio 12.5 (10-20); Calcium 8.4 mg/dl (8.5-10.1); Est GFR (African American) 106.9; Est GFR (Non-African American) 92.2; Potassium 3.8 mmol/L (3.5-5.1)
[2019-05-02] MEDS: cefTRIAXone SODIUM 2,000 MG in DEXTROSE 5% 50 ML IV SCH (10:22)
--- NOTE | 2019-05-02 15:50 | Hospitalist Progress Note ---
Date of Service May 02, 2019 Assessment & Plan (1) Meningitis: Presented with neck stiffness and headache History of recent pharyngitis on penicillin LP is supportive of viral etiology Was starting on antibiotic with Ceftriaxone and Vancomycin on 05/01 Antibiotics were discontinued since cx negative as per ID recommendation OK from ID standpoint to discharge home if cx remains negative (2) Headache: Secondary to meningitis Improved significantly (3) Strep pharyngitis: Denies any throat pain and or fever Clinically stable Disposition Will discharge home today Pt said that she will call her PCP to schedule follow up appointment within 1 week Subjective Pt was seen and examined Lying in bed with no distress Pt said that she feels much better She denies any headache, photophobia, fever and cough Physical Exam Physical Exam: General- No acute distress Head- atraumatic Eyes- PERRL, EOMI, ENT- oropharynx clear Neck- supple, no JVD Lungs- clear to auscultation Heart- regular rhythm; no murmur Abdomen- normal bowel sounds, soft, nontender Extremities- no calf tenderness Neuro- alert, oriented x 3; PERRL, EOMI; no facial palsy; no dysarthria Skin- warm & dry Results & Data Vital Signs (Past 12 Hours) Vital Signs Temp Pulse Resp BP Pulse Ox 05/02/19 15:25 37.2 C 74 16 145/91 H 97 05/02/19 07:28 37.0 C 71 16 118/77 93 (1) Headache Headache chronicity pattern: acute headache Headache type: unspecified Intractability: not intractable Qualified Code(s): R51 - Headache
--- NOTE | 2019-05-02 17:30 | Electrocardiogram Report ---
Test Reason : Blood Pressure : / mmHG Vent. Rate : 090 BPM Atrial Rate : 090 BPM P-R Int : 156 ms QRS Dur : 092 ms QT Int : 350 ms P-R-T Axes : 053 -13 009 degrees QTc Int : 428 ms Normal sinus rhythm Possible Left atrial enlargement Poor R wave progression, consider anterior OH vs. lead placement vs. LVH Abnormal ECG No previous ECGs available Confirmed by Baldev Logan ([id number]) on 05/02/2019 5:30:20 PM Referred By: REFERRED SELF Confirmed By:Yong Logan
--- NOTE | 2019-05-04 08:05 | Discharge Summary ---
Date of Service May 02, 2019 Admission HPI Per Admitting Provider CHIEF COMPLAINT: Headache and fever, neck stiffness. HISTORY OF PRESENT ILLNESS: This is a 38-year-old female with past medical history significant for mild asthma, obesity, presents due to severe headache and fevers. The patient was diagnosed with strep throat last and she was on penicillin and the strep throat has improved, but since yesterday morning, she has severe headaches, worst headache in her life, about 9/10 in severity. It is all over the head, but mostly behind the eyes and since last night, she could not eat anything and she had 1 episode of vomiting and she was nauseous and today, she developed fever and also neck stiffness, went to PCP's office and advised to come to the ER. In the ER, labs showed white count of 14.2. Her lumbar puncture was done and it showed white count of 460 and protein of [address].5. [address] of the head was unremarkable. The patient is on pain medication and her pain is currently improved, but she still has some photophobia, no phonophobia. Denies any cough. No dysphagia, no odynophagia. No chest pain, no shortness of breath. No abdominal pain. Normal bowel and bladder movements. No hematuria or blood in the stools or black stools. No burning micturition. Was feeling dizzy earlier. No blurred visions. No earache, no runny nose. Currently resting comfortable and hemodynamically stable. Admission Exam Per Admitting Provider GENERAL: The patient is obese, not in acute distress. VITAL SIGNS: T-max 38.1, pulse 74, respiratory rate 18, blood pressure 120/70, oxygen 94% room air. HEENT: No pallor, no icterus. Pupils equal, round, reactive to light. NECK: No JVD, no neck masses, no carotid bruits. CARDIOVASCULAR: S1, S2 heard. Regular rate and rhythm. No murmur, no gallop. RESPIRATORY SYSTEM: Normal AP diameter. No accessory muscle use. No wheezing, no crackles. ABDOMEN: Soft, bowel sounds present, nontender. No distention. CENTRAL NERVOUS SYSTEM: Cranial nerves II through XII grossly intact. Nonfocal. EXTREMITIES: No edema, no erythema. Principal Diagnosis Meningitis Headache Strep pharyngitis Discharge Exam General- No acute distress Head- atraumatic Eyes- PERRL, EOMI, ENT- oropharynx clear Neck- supple, no JVD Lungs- clear to auscultation Heart- regular rhythm; no murmur Abdomen- normal bowel sounds, soft, nontender Extremities- no calf tenderness Neuro- alert, oriented x 3; PERRL, EOMI; no facial palsy; no dysarthria Skin- warm & dry Discharge Data Allergies Allergy/AdvReac Type Severity Reaction Status Date / Time No Known Drug Allergies Allergy Verified 04/30/19 17:51 Consultations 04/30/19 21:38 ED Decision to Admit Stat 05/01/19 08:00 Consult Infectious Diseases Routine Ordered Studies 04/30/19 16:39 CT head/brain wo con Stat 04/30/19 18:58 FL lumbar puncture diagnostic Stat XR abdomen 2V w PA chest CLINICAL HISTORY: fever, vomiting nausea. Vomiting. COMPARISON STUDY: No previous studies for comparison. FINDINGS: The soft tissues, psoas shadows, renal outlines and intestinal gas pattern appear normal. There is no evidence for bowel obstruction. There is no evidence for free intraperitoneal air. No abnormal abdominal calcifications are seen. A frontal view of the chest was performed and is unremarkable. IMPRESSION: Normal study. ACT 112: Negative or not required by law. The above report was generated using voice recognition software. It may contain grammatical, syntax or spelling errors. Electronically signed by: Iván Smith M.D. 04/30/2019 6:20 PM Dictated: 04/30/191818 Transcribed: 04/30/191818 CT head/brain wo con CLINICAL HISTORY: 38 years-old Female with atypical headache. Acute headache TECHNIQUE: Multiple axial CT images of the head were obtained without contrast. A dose lowering technique was utilized adhering to the principles of ALARA. CT DOSE: 638.56 mGycm COMPARISON: None. FINDINGS: No acute intracranial hemorrhage, midline shift, intracranial mass, hydrocephalus, territorial ischemia or abnormal extra-axial collection. The calvarium is intact. Minimal mucosal thickening of the ethmoid air cells. Mastoid air cells are clear. Soft tissues and orbits are unremarkable. IMPRESSION: No acute intracranial abnormality. ACT 112: Negative or not required by law. The above report was generated using voice recognition software. It may contain grammatical, syntax or spelling errors. Electronically signed by: Joe Yarbrough M.D. 04/30/2019 5:13 PM Dictated: 04/30/191710 Transcribed: 04/30/191710 FL lumbar puncture diagnostic CLINICAL HISTORY: rule out meningitis meningitis FLUOROSCOPY TIME: 6 seconds PROCEDURE: The procedure, risks and benefits were discussed with the patient including the risk of spinal headache, bleeding and infection. The patient agreed to the procedure and informed written consent was obtained. The procedure was performed by Dr. Smith following a timeout. The left L2-L3 interlaminar space was targeted. Skin overlying the space was prepped and draped in the usual sterile fashion and local anesthesia was achieved with 1% lidocaine. Under intermittent fluoroscopic guidance, a 20-gauge x 3 1/2 in. Sprotte needle was inserted into the thecal sac. A total of 10 cc of clear, colorless cerebral spinal fluid was obtained and spread amongst 4 vials. The patient tolerated the procedure well. There were no immediate complications. The specimens were sent to the laboratory at the request of the referring physician. IMPRESSION: Successful fluoroscopic guided lumbar puncture with removal of 10 cc of clear, colorless cerebral spinal fluid. No immediate complications. ACT 112: Negative or not required by law. The above report was generated using voice recognition software. It may contain grammatical, syntax or spelling errors. Electronically signed by: Iván Smith M.D. 04/30/2019 8:49 PM Dictated: 04/30/192048 Transcribed: 04/30/192048 Hospital Course (1) Meningitis: Presented with neck stiffness and headache History of recent pharyngitis on penicillin LP is supportive of viral etiology Was starting on antibiotic with Ceftriaxone and Vancomycin on 05/01 Antibiotics were discontinued since cx negative as per ID recommendation OK from ID standpoint to discharge home if cx remains negative (2) Headache: Secondary to meningitis Improved significantly (3) Strep pharyngitis: Denies any throat pain and or fever Clinically stable Disposition Will discharge home today Pt said that she will call her PCP to schedule follow up appointment within 1 week Total Time Total Time Spent Total Time Spent (In Minutes): 35 minutes Total Time Includes: Examination of the Patient, Discharge Planning, Medication Reconciliation, Communication With Other Providers and Other Discharge Plan Discharge Items Patient Disposition: Home - Self-Care Reason For Visit: HEADACHE AND FEVER Discharge Diagnosis: Meningitis Headache Strep pharyngitis: Condition on Discharge: Good Activity: Resume your previous activity Non-emergency contact: Primary Care Provider Call non-emergency contact if: you have any medication questions and your temperature is above 101 Follow-up/Referrals: Delmis Garay, [Primary Care Provider] - Diet: Regular Addtl Attending Provider Instructions: Please call to schedule a follow up appointment with your primary care provider within 1 week If you develop any fever with Temperature above 101, please seek medical attention Pending Studies at Discharge: No Stand-Alone Forms: [facility], Work/School Release (Inpt), Smoking Cessation Medications and DC Order Prescriptions: Discontinued penicillin V potassium 500 mg tablet 500 mg PO BID RF: 0 Discharge Orders: Discharge Order (Routine); Ordered 05/02/19 Ordered By: Meryl Obregon/Other Patient Handouts: Precautions Droplet Transmission, Meningitis Viral Ch Admission Data Admit Date/Time: 04/30/19 22:55 Attending Provider: Meryl Denise Admit Provider: Jesus Valera Primary Care Provider: Delmis Garay Other Providers: Jesus Valera ; Beulah James ; Hiram Villaseñor Other Interventions: Discharge Summary Assessment (RN) Last Done: 05/02/19 16:17 DC Date/Time DO NOT enter until pt leaves facility: 05/02/19 16:46
[2019-05-05 22:50] LABS: Lyme IgG Band Pattern CSF DNR; Lyme IgG CSF NO BANDS DETECTED; Lyme IgM Band Pattern CSF DNR; Lyme IgM CSF NO BANDS DETECTED
== END 2019-05-02 16:46 | disposition home or self-care (01) | DRG 75 ==
LOC: ED 15:42 → SUATTDRO 22:55 → 3W 22:55